=== PATIENT | male | born 1970 | race American Indian/Alaskan Native ===

== ENCOUNTER 2019-05-02 19:37 | Emergency (ER) | payer SELFPAY ==
[2019-05-02] MEDS ORDERED: HALOPERIDOL LACTATE 5 MG/1 ML INJ IM PRN (20:18)
[2019-05-02] MEDS ORDERED: LORazepam 2 MG/ML VIAL IM PRN (20:18)
--- NOTE | 2019-05-02 20:20 | Emergency Department Report ---
ED General Adult HPI - General Chief complaint: Alcohol Stated complaint: ETOH Time Seen by Provider: 05/02/19 20:15 Source: EMS (EMS records not available at time of chart dictation.), RN notes reviewed, old records reviewed Mode of arrival: Ambulatory Limitations: Other (patient is intoxicated) - History of Present Illness Initial comments: The patient is a 48-year-old gentleman who is not known to this provider previously. He is brought to the hospital by EMS after [place] station, presumably intoxicated. When I go in to evaluate the patient he is sleeping, breathing spontaneously, and in no acute distress. EMS records not available at time of chart dictation. As per nursing documentation: 1st pt contact. Pt appears intoxicated and covered in urine. Pt will only say that his name is "BG Skills". When asked about health history, pt says "shut the fuck up and leave me alone." Pt walked to sink and urinated in sink. Pt states " I will be ok if you will suck my naida." Pt dressed in gown and placed on monitor. There are currently no friends or family available at this time for additional information or collateral history. -: unknown Radiation: other Quality: other Consistency: other Improves with: other Worsens with: other Associated Symptoms: other Treatments Prior to Arrival: other - Related Data Allergies Allergy/AdvReac Type Severity Reaction Status Date / Time No Known Allergies Allergy Unverified 05/03/19 02:19 ED Review of Systems ROS: Stated complaint: ETOH Other details as noted in HPI Comment: Unobtainable due to pts medical conditions ED Past Medical Hx - Past Medical History Additional medical history: unknown - Surgical History Additional Surgical History: unknown - Social History Smoking Status: Never Smoker Substance Use Type: Alcohol ED Physical Exam - General Limitations: Other (patient intoxicated, sleepy/listless) General appearance: in no apparent distress, appears intoxicated - Head Head exam: Present: atraumatic, normocephalic - Eye Eye exam: Present: normal appearance, PERRL - ENT ENT exam: Present: normal exam, mucous membranes moist, normal external ear exam, other (dried blood noted coming from the nose) - Neck Neck exam: Present: normal inspection. Absent: tenderness, meningismus - Respiratory Respiratory exam: Present: normal lung sounds bilaterally. Absent: respiratory distress - Cardiovascular Cardiovascular Exam: Present: regular rate, normal rhythm, normal heart sounds. Absent: bradycardia, tachycardia, irregular rhythm, systolic murmur, diastolic murmur, rubs, gallop - GI/Abdominal GI/Abdominal exam: Present: soft. Absent: distended, tenderness, guarding, rebound, rigid, pulsatile mass - Rectal Rectal exam: Present: deferred - Extremities Exam Extremities exam: Present: normal inspection, other (2+ pulses noted in the bilateral upper and lower extremities. The pelvis is stable. There is no long bony tenderness. The muscular compartments are soft. There is no redness, pus, streaking or erythema.). Absent: pedal edema, calf tenderness - Back Exam Back exam: Present: normal inspection. Absent: tenderness, CVA tenderness (R), CVA tenderness (L), paraspinal tenderness, vertebral tenderness - Neurological Exam Neurological exam: Present: altered, other (the patient is intoxicated and sleeping at this time) - Skin Skin exam: Present: warm, dry, intact, normal color. Absent: rash ED Course Vital Signs 05/02/19 05/02/19 05/02/19 19:50 19:53 19:56 Temperature 97.6 F Pulse Rate 90 Respiratory 22 18 Rate Blood Pressure O2 Sat by Pulse 97 Oximetry 05/02/19 05/02/19 05/02/19 20:00 20:30 21:41 Temperature Pulse Rate 100 H Respiratory 15 Rate Blood Pressure 127/83 125/90 125/90 O2 Sat by Pulse 96 Oximetry 05/02/19 05/02/19 05/02/19 22:00 23:00 23:01 Temperature Pulse Rate 96 H 88 92 H Respiratory 16 14 12 Rate Blood Pressure 91/60 110/75 110/75 O2 Sat by Pulse 87 97 96 Oximetry 05/02/19 05/03/19 05/03/19 23:30 00:00 00:31 Temperature Pulse Rate 98 H 97 H 105 H Respiratory 17 16 16 Rate Blood Pressure 105/52 93/57 116/96 O2 Sat by Pulse 87 89 Oximetry 05/03/19 05/03/19 05/03/19 01:00 01:31 02:00 Temperature Pulse Rate 94 H 97 H 97 H Respiratory 14 14 14 Rate Blood Pressure 115/87 98/69 90/61 O2 Sat by Pulse Oximetry 05/03/19 05/03/19 05/03/19 02:30 03:00 03:30 Temperature Pulse Rate 95 H Respiratory 13 Rate Blood Pressure 106/77 113/82 121/89 O2 Sat by Pulse Oximetry 05/03/19 05/03/19 05/03/19 04:00 04:30 05:00 Temperature Pulse Rate Respiratory Rate Blood Pressure 117/87 107/74 101/73 O2 Sat by Pulse Oximetry 05/03/19 05/03/19 05:30 06:00 Temperature Pulse Rate Respiratory Rate Blood Pressure 117/90 105/76 O2 Sat by Pulse Oximetry - Reevaluation(s) Reevaluation #1: 05/02/19 20:39 Differential diagnoses, including but not limited to: Alcohol intoxication, intracranial injury, cervical spine injury, electrolyte derangement Assessment and plan: 48-year-old gentleman, clinically intoxicated, now sleeping comfortably, in no acute distress. No family or friends are available at this point in time. Patient placed on ER hold. CT scan brain and cervical spine ordered. Appropriate screening laboratory studies and EKG ordered. When necessary medications for agitation ordered. We will reassess after initial data points. Reevaluation #2: 05/02/19 22:15 Laboratory studies, radiology studies are reviewed and appreciated. Patient resting comfortable on stretcher, sleeping, and in no acute distress. Blood alcohol 0.46. We will observe in this department pending clinical sobriety. Reevaluation #3: 05/02/19 23:31 care will be transferred to Dr Kiet Moses to observe pending clinical sobriety ED Medical Decision Making - Lab Data Result diagrams: 05/02/19 20:25 05/02/19 20:25 Vital Signs 05/02/19 19:53 Temperature 97.6 F - EKG Data 05/02/19 22:15 No prior EKG if it is available for comparison. Sinus, tachycardic, 100 bpm, left axis deviation, left anterior fascicular bl ock, left ventricular hypertrophy, QTC prolonged, motion artifact, not a STEMI - Radiology Data Radiology results: pending, report reviewed, image reviewed Noncontrast CT scan of the brain shows no acute intracranial findings. Soft tissue hematoma noted. CT scan cervical spine negative for acute disease. X-ray the chest is negative for acute disease. Critical care attestation.: If time is entered above; I have spent that time in minutes in the direct care of this critically ill patient, excluding procedure time. ED Disposition Clinical Impression: Alcohol abuse Disposition: DC-01 TO HOME OR SELFCARE Is pt being admited?: No Does the pt Need Aspirin: No Condition: Stable Instructions: Alcohol Intoxication (ED), Abuse of Alcohol (ED) Referrals: [facility] [Outside] - 3-5 Days MENIFEE MAGDIEL COVARRUBIAS MD [Primary Care Provider] - 3-5 Days
--- NOTE | 2019-05-02 21:06 | XRay Report ---
CHEST 1 VIEW INDICATION / CLINICAL INFORMATION: intox ams. COMPARISON: None available. FINDINGS: SUPPORT DEVICES: None. HEART / MEDIASTINUM: No significant abnormality. LUNGS / PLEURA: No significant pulmonary or pleural abnormality. No pneumothorax. ADDITIONAL FINDINGS: Marked thoracic scoliosis. IMPRESSION: 1. No acute findings. Signer Name: Byron Maddox MD Signed: 05/02/2019 9:01 PM Workstation Name: [id number]
[2019-05-02 21:18] LABS: INR 0.99 (0.87-1.13)
[2019-05-02 21:23] LABS: BUN/Creatinine Ratio 8; Blood Urea Nitrogen 6 mg/dL (9-20); Calcium 8.7 mg/dL (8.4-10.2); Hemolysis Index 66
[2019-05-02 22:03] LABS: Hematocrit 43.7 % (35.5-45.6); Hemoglobin 14.1 gm/dl (11.8-15.2); Mean Corpuscular HGB Conc 32 % (32-34); Mean Corpuscular Volume 99 fl (84-94); Platelet Count 231 K/mm3 (140-440); Red Blood Count 4.42 M/mm3 (3.65-5.03); Red Cell Distribution Width 16.4 % (13.2-15.2)
--- NOTE | 2019-05-02 22:03 | Cat Scan Report ---
CT head/brain wo con INDICATION / CLINICAL INFORMATION: intox ams. TECHNIQUE: All CT scans at this location are performed using CT dose reduction for ALARA by means of automated e xposure control. COMPARISON: None available. FINDINGS: No intracranial hemorrhage. No abnormal extra-axial fluid collection. No evidence of mass effect. The ventricular system and basilar cisterns are normal. Left supraorbital soft tissue swelling and hematoma are associated with the small amount of fluid lat erally in the left frontal sinus. There are previous surgical changes of the superior orbit be and what appears to be an ununited osseo us fragment of the lateral wall of frontal sinus. This appears well-corticated and may not represent an acute fracture. IMPRESSION: 1. No acute intracranial abnormality. 2. Left supraorbital scalp hematoma and previous surgical changes of the left supraorbital area. 3. Mild mucosal thickening laterally in the left frontal sinus with what appears to be an old ununite d fracture fragment. Signer Name: Byron Maddox MD Signed: 05/02/2019 9:58 PM Workstation Name: [id number]
--- NOTE | 2019-05-02 22:06 | Cat Scan Report ---
CT cervical spine wo con INDICATION / CLINICAL INFORMATION: etoh ams intox found down. TECHNIQUE: All CT scans at this location are performed using CT dose reduction for ALARA by means of automated e xposure control. COMPARISON: None available. FINDINGS: No cervical fracture. Degenerative changes are identified at C4-C5, C5-C6 and C6-C7. No subluxation. IMPRESSION: 1. No cervical fracture or subluxation. Signer Name: Byron Maddox MD Signed: 05/02/2019 10:01 PM Workstation Name: [id number]
[2019-05-02] MEDS ORDERED: SODIUM CHLORIDE 0.9% 1000 ML 1,000 ML IV ONE (22:19)
[2019-05-02] MEDS ORDERED: D5W/0.45% NACL 1,000 ML IV SCH (23:00)
[2019-05-03 07:20] VITALS: BP 105/76
== END 2019-05-03 06:25 | disposition home or self-care (01) ==
LOC: ED 19:37
DX: F10.10 Alcohol abuse, uncomplicated (principal); R41.82 Altered mental status, unspecified
CPT/HCPCS: 36415; 70450; 71045; 72125; 80048; 82550; 83735; 85027; 85610; 93005; 93010; 96372; 99285; J1630; J2060; J7030; 80320; G0480